=== PATIENT | male | born 1975 | race American Indian/Alaskan Native ===

== ENCOUNTER 2020-02-26 14:53 | Emergency (ER) | payer BC ==
[~2020-02-26] VITALS: Ht 177.8 cm; Wt 117.9 kg
[2020-02-26] MEDS ORDERED: ONDANSETRON ODT8 MG PO (18:16)
[2020-02-26] MEDS ORDERED: KEFLEX500 MG PO (18:16)
== END 2020-02-26 18:34 | disposition home or self-care (01) ==
LOC: ED 14:53
DX: K52.9 Noninfective gastroenteritis and colitis, unspecified (principal); L03.115 Cellulitis of right lower limb
CPT/HCPCS: 80053; 81001; 83690; 83735; 85025; 96365; 96366; 96375; 99284-25; J0696; J2405; J7030

== ENCOUNTER 2024-02-20 20:18 | Emergency (ER) | payer OTHER ==
[~2024-02-20] VITALS: Ht 177.8 cm; Wt 120.0 kg
[~2024-02-20 20:18] MED LIST: KEFLEX500 MG PO; ONDANSETRON ODT8 MG PO
[2024-02-20] MEDS ORDERED: SODIUM CHLORIDE 0.9% 1,000 ML IV ONE (20:30)
[2024-02-20] MEDS ORDERED: DAPTOmycin 500 MG/10 ML VIAL IV ONE (20:30)
[2024-02-20 20:43] LABS: HEMOGLOBIN 18.5 g/dL (12.0-18.0); MCH 34.8 (27-36); MCHC 35.6 g/dl (30-36); MCV 97.7 fl (81-99); PLATELET COUNT 225 K/uL (140-440); RBC 5.32 M/ul (4.3-5.7); RDW 12.8 (10.5-15.0)
[2024-02-20 21:00] LABS: BANDS, MANUAL DIFF 5; EOSINOPHILS, MANUAL DIFF 1; LYMPHOCYTES, MANUAL DIFF 17; MONOCYTES, MANUAL DIFF 8; NEUTROPHILS, MANUAL DIFF 69
[2024-02-20 21:01] LABS: ALBUMIN 3.8 g/dL (3.4-5.0); ALBUMIN/GLOBULIN RATIO 0.86 (1.1-2.4); ANION GAP 12.4 (7-21); BILIRUBIN, TOTAL 2.4 ng/dL (0.2-1.0); BUN/CREATININE RATIO 8.49 (6.0-28.6); CALCIUM 8.9 mg/dL (8.5-10.1); CREATININE, SERUM 1.06 mg/dL (0.70-1.30); POTASSIUM 3.4 mmol/L (3.5-5.1); PROTEIN, TOTAL 8.2 g/dL (6.4-8.2)
[2024-02-20 21:02] LABS: LACTIC ACID, BLOOD 0.7 mmol/L (0.4-2.0)
[2024-02-20] MEDS ORDERED: CLEOCIN HCL300 MG PO (21:13)
[2024-02-20 22:24] VITALS: BP 136/106
== END 2024-02-20 22:25 | disposition home or self-care (01) ==
LOC: ED 20:18
PROVIDERS: Family Medicine
DX: L03.115 Cellulitis of right lower limb (principal); Z79.899 Other long term (current) drug therapy
CPT/HCPCS: 36415; 80053; 83605; 85025; 96374; 99283-25; J0878; J7030